=== PATIENT | female | born 1960 | race Caucasian/White ===

== ENCOUNTER 2017-01-14 17:37 | Emergency (ER) | payer MEDICAID ==
[~2017-01-14] VITALS: Ht 170.2 cm; Wt 68.0 kg
[2017-01-14 17:52] VITALS: BP 114/78
--- NOTE | 2017-01-14 17:57 | NUR ---
PT PRESENTS TO ER W/C/O LOW BACK PAIN THAT RADIATES DOWN FAITH LEGS X3 DAYS. W/ PAIN SCALE OF 7/10.HX HTN AND GASTRIC BYPASS.DENIES DENIES FALLING /TRAUMA/CP/SOB/FEVER/N/V.PT IS AAOX4.NO ACUTE DISTRESS NOTED AT THIS TIME.SAFETY PREACUTION INSTITUTTED,NEEDS ATTENDED. MADE AWARE OF PT'S CONDITION.
--- NOTE | 2017-01-14 18:04 | NUR ---
DR BENTON AT BEDSIDE
--- NOTE | 2017-01-14 18:29 | NUR ---
PT LYING ON BED COMFORTABLY.NO ACUTE DISTRESS NOTED AT THIS TIME.NIECE AT BEDSIDE.
--- NOTE | 2017-01-14 18:35 | NUR ---
Patient discharged with v/s stable. Written and verbal after care instructions given and explained.Patient alert, oriented and verbalized understanding of instructions. Ambulatory with steady gait. All questions addressed prior to discharge. ID band removed. Patient advised to follow up with PMD. Rx of TRAMADOL AND DEXILANT given. Patient educated on indication of medication including possible reaction and side effects. Opportunity to ask questions provided and answered.ADVISEDPT TO AVOID GREASDY FOODS AND CAFFEINE AND PT AGREED TO IT.
[2017-01-14 18:36] VITALS: BP 114/78
== END 2017-01-14 18:35 | disposition home or self-care (01) ==
LOC: MED 17:37
DX: M54.41 Lumbago with sciatica, right side (principal); K21.9 Gastro-esophageal reflux disease without esophagitis; I10 Essential (primary) hypertension; Z98.84 Bariatric surgery status

== ENCOUNTER 2017-08-08 14:28 | Emergency (ER) | payer SELFPAY ==
[~2017-08-08] VITALS: Ht 170.2 cm; Wt 71.9 kg
[2017-08-08 14:37] VITALS: BP 133/68
--- NOTE | 2017-08-08 17:11 | NUR ---
NO ANSWER IN ER LOBBY
== END 2017-08-08 17:11 | disposition left against medical advice (07) ==
LOC: MED 14:28
DX: M79.642 Pain in left hand (principal); Z53.21 Procedure and treatment not carried out due to patient leaving prior to being seen by health care provider
CPT/HCPCS: 82948

== ENCOUNTER 2018-07-24 05:57 | Day surgery (SDC) | payer MEDICAID ==
[~2018-07-24] VITALS: Ht 170.2 cm; Wt 72.6 kg
[2018-07-24] MEDS ORDERED: fentaNYL 0.05 MG/ML VIAL ONE (07:20)
[2018-07-24] MEDS ORDERED: diphenhydrAMINE 50 MG/ML VIAL ONE (07:21)
[2018-07-24] MEDS ORDERED: MIDAZOLAM 2 MG/2 ML VIAL ONE (07:21)
[2018-07-24] MEDS ORDERED: fentaNYL 0.05 MG/ML VIAL IVP ONE (07:55)
[2018-07-24] MEDS ORDERED: MIDAZOLAM 2 MG/2 ML VIAL IVP ONE (07:55)
== END 2018-07-24 09:10 | disposition home or self-care (01) ==
LOC: MDS 05:57 → MMU 06:05 → MDS 09:10
PROVIDERS: ATTEND Internal Medicine
DX: K21.9 Gastro-esophageal reflux disease without esophagitis (principal); I10 Essential (primary) hypertension; F17.210 Nicotine dependence, cigarettes, uncomplicated; Z88.7 Allergy status to serum and vaccine; Z98.84 Bariatric surgery status; Z79.82 Long term (current) use of aspirin; Z79.899 Other long term (current) drug therapy; Z90.49 Acquired absence of other specified parts of digestive tract; Z98.890 Other specified postprocedural states
CPT/HCPCS: 36415; 43239; 86677; J2250; J3010; J7030; J1200

== ENCOUNTER 2019-02-03 13:53 | Emergency (ER) | payer SELFPAY ==
[~2019-02-03] VITALS: Ht 170.2 cm; Wt 71.2 kg
[2019-02-03 14:00] VITALS: BP 123/58
--- NOTE | 2019-02-03 14:00 | NUR ---
Patient ambulated to 6. RN evaluating patient at bedside.
[2019-02-03] MEDS ORDERED: LISI2.5T12 PO (14:06)
--- NOTE | 2019-02-03 14:08 | NUR ---
58 y female c/o head pressure for the past 10 days, all over head. Pt reports having "cramps" to head and states she felt a pop behind left eye today and has intermittent lightheadedness. bed is down, bed rail x 1, ermd notified. hx HTN rx- lisinopril
--- NOTE | 2019-02-03 14:17 | NUR ---
Patient being evaluated by Dr. Álvarez at bedside.
--- NOTE | 2019-02-03 14:55 | NUR ---
lab at bedside
[2019-02-03 15:00] LABS: EOSINOPHILS # (AUTO) 0.1 K/uL (0-0.4); HEMATOCRIT 39.5 % (36-48); HEMOGLOBIN 13.1 g/dL (12.0-16.0); LYMPHOCYTES # (AUTO) 2.2 K/uL (2.5-16.5); LYMPHOCYTES % (AUTO) 43.8 % (20.5-51.1); MEAN CORPUSCULAR HEMOGLOBIN 31 pg (27-31); MEAN CORPUSCULAR HGB CONC 33 g/dL (33-37); MEAN CORPUSCULAR VOLUME 92.5 fL (80-94); MONOCYTES # (AUTO) 0.2 K/uL (0.8-1.0); MONOCYTES % (AUTO) 3.9 % (1.7-9.3); NEUTROPHILS # (AUTO) 2.5 K/uL (1.8-7.7); NEUTROPHILS % (AUTO) 50.3 % (42.2-75.2); PLATELET COUNT (AUTO) 310 K/uL (140-450); RED BLOOD CELL COUNT(AUTO) 4.27 MIL/uL (4.20-5.40); RED CELL DISTRIBUTION WIDTH 16.2 % (11.6-13.7)
[2019-02-03 15:24] LABS: ALBUMIN 3.7 g/dL (3.4-5.0); ANION GAP 12.9 (8-16); CARBON DIOXIDE 26.8 mmol/L (21-32); CREATININE 0.6 mg/dL (0.6-1.3); POTASSIUM 4.7 mmol/L (3.5-5.1); TOTAL BILIRUBIN 0.5 mg/dL (0.0-1.0)
--- NOTE | 2019-02-03 16:24 | NUR ---
Dr. Álvarez re-evaluating patient at bedside.
[2019-02-03 17:15] VITALS: BP 121/60
--- NOTE | 2019-02-03 17:17 | NUR ---
Patient discharged with v/s stable. Written and verbal after care instructions given and explained. Patient alert, oriented and verbalized understanding of instructions. Ambulatory with steady gait. All questions addressed prior to discharge. ID band removed. Patient advised to follow up with PMD. Rx of TRAMODOL, IBUPROFEN given. Patient educated on indication of medication including possible reaction and side effects. Opportunity to ask questions provided and answered.
--- NOTE | 2019-02-03 17:17 | NUR ---
DISCHARGE COMPLETED BY GINO ECHEVARRIA
== END 2019-02-03 17:17 | disposition home or self-care (01) ==
LOC: MED 13:53
DX: R51 Headache (principal); H57.12 Ocular pain, left eye; R42 Dizziness and giddiness; I10 Essential (primary) hypertension; Z90.49 Acquired absence of other specified parts of digestive tract; Z98.84 Bariatric surgery status; Z88.7 Allergy status to serum and vaccine
CPT/HCPCS: 36415; 70450; 80053; 85025; 85651; 99284